=== PATIENT | female | born 1995 | race Caucasian/White ===

== ENCOUNTER 2022-12-16 09:52 | Day surgery (SDC) | payer OTHER ==
[2022-12-13 13:04] VITALS: BMI 22.2
[2022-12-16] MEDS ORDERED: BUPIVACAINE HCL/EPINEPHRINE/PF 30 ML VIAL IJ ONE (10:30)
[2022-12-16] MEDS ORDERED: ACETAMINOPHEN 325 MG TABLET (FP) PO PRN (11:57)
[2022-12-16] MEDS ORDERED: oxyCODONE HCL 5 MG TABLET PO PRN (11:57)
[2022-12-16] MEDS ORDERED: ONDANSETRON 4 MG/2 ML VIAL IVPUSH PRN (11:57)
[2022-12-16] MEDS ORDERED: LACTATED RINGERS SOLUTION 1,000 ML IV SCH (12:00)
[2022-12-16] MEDS ORDERED: MIDAZOLAM HCL 2 MG/2 ML SINGLE DOSE VIAL ONE (12:03)
[2022-12-16] MEDS ORDERED: PROPOFOL 20 ML ONE (12:12)
[2022-12-16] MEDS ORDERED: ceFAZolin SODIUM 1 GM VIAL ONE ×2 (12:16)
[2022-12-16] MEDS ORDERED: ONDANSETRON 4 MG/2 ML VIAL ONE ×2 (12:25→13:01)
[2022-12-16] MEDS ORDERED: KETOROLAC TROMETHAMINE 30 MG/1 ML VIAL ONE (12:25)
[2022-12-16] MEDS ORDERED: DEXAMETHASONE SOD PHOSPHATE 4 MG/1 ML VIAL ONE (12:25)
[2022-12-16] MEDS ORDERED: BUPIVACAINE 0.25% /EPI 1:200,000 10 ML VIAL NR ONE ×2 (12:27)
[2022-12-16] MEDS ORDERED: FENTANYL CITRATE/PF 50 MCG/ML VIAL ONE (13:01)
[2022-12-16] MEDS ORDERED: ACETAMINOPHEN INJECTION 100 ML IVPB ONE (13:01)
[2022-12-16] MEDS ORDERED: ACETAMINOPHEN 1000 MG/100 ML BAG IVPB ONE (13:08)
[2022-12-16 14:39] VITALS: RESP 16; TEMP 97.9
[2022-12-16 14:42] VITALS: BP 125/72; PULSE 60
== END 2022-12-16 14:43 | disposition home or self-care (01) ==
LOC: FASU 09:52
PROVIDERS: ATTEND Orthopaedic Surgery
PROC: 0SBD4ZZ Excision of Left Knee Joint, Percutaneous Endoscopic Approach (ICD-10-PCS; principal; 2022-12-16 12:28)
DX: S83.282A Other tear of lateral meniscus, current injury, left knee, initial encounter (principal); X58.XXXA Exposure to other specified factors, initial encounter; Y93.9 Activity, unspecified; Y92.9 Unspecified place or not applicable
CPT/HCPCS: 81025; 94760